=== PATIENT | male | born 1935 | race Caucasian/White ===

== ENCOUNTER 2016-04-27 10:42 | Emergency (ER) | payer MEDICARE, OTHER ==
[~2016-04-27 10:42] MED LIST: COUMADIN5 MG PO; IMODIUM DPS2 MG PO; LANOXIN DPS0.25 MG PO; LASIX DPS20 MG PO; LOPRESSOR DPS12.5 MG PO; MAALOX DPS30 ML PO; NORMAL SALINE FL5 ML IV; PREVACID30 MG PO; TYLENOL DPS325 MG PO; VANCOCIN-DPS1 GM IV; VASOTEC DPS2.5 MG PO; ZOCOR DPS20 MG PO
--- NOTE | 2016-04-28 06:22 | ER ---
ADMIT: 04/27/2016 RM/LOC: ER [facility] MR#: [id number] [address] [id number] [place] [address] Emergency Room Report SEX: M AGE: 81 : 1935 DATE: 04/27/2016 TIME: 1042 hours. Please refer to my T-sheet for complete H and P. Briefly, patient is a 81- year-old, comes in where he was up today early. He was getting the physical exam done at home. He gets them once a year. He has been having some recent nausea, vomiting, and diarrhea. He had several episodes during this. He had to actually leave the interview for a while. The last time he stood up to go to the restroom, he got lightheaded, turned white, and passed out. He says he feels fine. Denies any chest pain. He does have a history of cardiac disease. 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 He says he feels fine. No injury when he fell. PHYSICAL EXAMINATION: VITAL SIGNS: Blood pressure 119/44, pulse 72, respirations 15, temp 96.7, and sat 94%. GENERAL: No acute distress. HEENT: Grossly normal. LUNGS: Clear. HEART: Regular. No murmur. ABDOMEN: Soft. SKIN: No rash. NEUROLOGIC: Alert and oriented, nonfocal. EMERGENCY DEPARTMENT COURSE: EKG was sinus rhythm, rate 79, no changes. CBC normal except hemoglobin 10.4, which is stable for him. Chemistries normal. Troponin negative. He was given a liter of normal saline bolus, Zofran 4 IV, was feeling much better. We have set him up with a 48-hour Holter. He is ready for discharge. ASSESSMENT: 1. Syncopal episode. 2. Vasovagal episode secondary to the vomiting and diarrhea. 3. Nausea, vomiting, and diarrhea. 4. History of valve repair. PLAN: Put him on a 48-hour Holter. Follow up with Dr. Landry. Asked return if worse. Fluids. I wrote him script for Phenergan. Micah Ferrer MD/ fredo JOB #: [id number] CC: Micah Ferrer MD, Attending Physician Henrry Landry MD, Family Physician
== END 2016-04-27 13:25 | disposition home or self-care (01) ==
LOC: ER 10:42
DX: R55 Syncope and collapse (principal); R11.2 Nausea with vomiting, unspecified; R19.7 Diarrhea, unspecified; Z85.01 Personal history of malignant neoplasm of esophagus; Z88.0 Allergy status to penicillin; Z88.8 Allergy status to other drugs, medicaments and biological substances; Z79.01 Long term (current) use of anticoagulants; Z79.899 Other long term (current) drug therapy